=== PATIENT | male | born 1955 | race Caucasian/White ===

== ENCOUNTER → 2017-03-16 | Outpatient (CLI) | payer OTHER ==
[~2017-03-16] MED LIST: AMLO5TAB2 PO; HYDR-3580 PO; IBUP-232 PO; LISI-515 PO; MELO7.5T27 PO; TRAM50TA PO
== END ==
LOC: CPRE 08:01
PROVIDERS: ATTEND Orthopaedic Surgery
DX: Z01.818 Encounter for other preprocedural examination (principal)

== ENCOUNTER 2017-04-02 05:23 | Day surgery (SDC) | payer OTHER ==
[~2017-04-02] VITALS: Ht 177.8 cm; Wt 132.4 kg
[2017-04-02 05:56] VITALS: BP 147/89; PULSE 71; RESP 18; TEMP 98.2; O2SAT 98
[2017-04-02] MEDS ORDERED: POVIDONE IODINE 5% (ANTISEPSIS KIT) 4 APPLICATIONS EACH NARE PRN (06:00)
[2017-04-02] MEDS ORDERED: SODIUM CHLORID 0.9% 500 ML IV PRN (06:00)
[2017-04-02] MEDS ORDERED: LACTATED RINGER'S 1000 ML IV PRN (06:00)
[2017-04-02] MEDS ORDERED: METOPROLOL TARTRATE 25 MG TAB PO PRN (06:00)
[2017-04-02] MEDS ORDERED: EXPAREL PERI-ARTICULAR INJECTION (TOTAL VOL. 60 ML) P-ARTICULR SCH ×2 (06:00)
[2017-04-02] MEDS ORDERED: CHLORHEXIDINE GLUCONATE 4% SOLN 120 ML BTL TOPICAL SCH (06:00)
[2017-04-02] MEDS ORDERED: CHLORHEXIDINE GLUCONATE 2 % 1 PACK (2 CLOTHS) TOPICAL PRN (06:00)
[2017-04-02] MEDS ORDERED: SODIUM CHLORIDE 0.9% IV SCH ×2 (07:00→10:00)
[2017-04-02] MEDS ORDERED: TRANEXAMIC ACID IV SCH ×2 (07:00→10:00)
== END 2017-04-02 06:58 | disposition home or self-care (01) ==
LOC: HSDI 05:23 → HSDC 05:23 → UNDOADMIN 05:23 → HSDI 05:24 → HSDC 06:58 → EDSTATUS 07:00 → EDUNIT# 07:00
PROVIDERS: ATTEND Orthopaedic Surgery
DX: M16.12 Unilateral primary osteoarthritis, left hip (principal); Z53.9 Procedure and treatment not carried out, unspecified reason
CPT/HCPCS: 99211; C9290; G0463

== ENCOUNTER 2017-04-10 05:19 | Inpatient (IN) | payer OTHER ==
[~2017-04-10] VITALS: Ht 180.3 cm; Wt 131.2 kg
[2017-04-10] MEDS ORDERED: CHLORHEXIDINE GLUCONATE 4% SOLN 120 ML BTL TOPICAL SCH (05:45)
[2017-04-10] MEDS ORDERED: EXPAREL PERI-ARTICULAR INJECTION (TOTAL VOL. 60 ML) P-ARTICULR SCH ×2 (05:45)
[2017-04-10] MEDS ORDERED: SODIUM CHLORIDE 0.9% IV SCH (05:45)
[2017-04-10] MEDS ORDERED: CHLORHEXIDINE GLUCONATE 2 % 1 PACK (2 CLOTHS) TOPICAL PRN (05:45)
[2017-04-10] MEDS ORDERED: INSULIN HUMAN REGULAR 1,000 UNITS/10 ML VIAL SQ PRN (05:45)
[2017-04-10] MEDS ORDERED: POVIDONE IODINE 5% (ANTISEPSIS KIT) 4 APPLICATIONS EACH NARE PRN (05:45)
[2017-04-10] MEDS ORDERED: SODIUM CHLORID 0.9% 500 ML IV PRN (05:45)
[2017-04-10] MEDS ORDERED: LACTATED RINGER'S 1000 ML IV PRN (05:45)
[2017-04-10] MEDS ORDERED: ceFAZolin 2 GM PREMIX 50 ML IV SCH (05:45)
[2017-04-10] MEDS ORDERED: TRANEXAMIC ACID IV SCH (05:45)
[2017-04-10] MEDS ORDERED: METOPROLOL TARTRATE 25 MG TAB PO PRN (05:45)
[2017-04-10] MEDS ORDERED: GENTAMICIN SULFATE 80 MG/2 ML VIAL ONE (06:09)
[2017-04-10 06:27] LABS: AUTOMATED NEUTROPHIL # 4.8 TH/MM3 (1.8-7.7); BASOPHIL # 0.1 TH/MM3 (0-0.2); BASOPHIL % 0.8 % (0.0-2.0); EOSINOPHIL # 0.4 TH/MM3 (0-0.4); EOSINOPHIL % 4.7 % (0.0-4.0); HEMATOCRIT 40.1 % (39.0-51.0); HEMO FLAGS DIFF FINAL; LYMPH % 21.8 % (9.0-44.0); LYMPHOCYTE # 1.7 TH/MM3 (1.0-4.8); MEAN CELL VOLUME 78.5 FL (80.0-100.0); MEAN CORPUSCULAR HEMOGLOBIN 26.2 PG (27.0-34.0); MEAN CORPUSCULAR HGB CONC 33.3 % (32.0-36.0); MONO % 10.9 % (0.0-8.0); NEUT % 61.8 % (16.0-70.0); PLATELET COUNT 226 TH/MM3 (150-450); RED BLOOD COUNT 5.11 MIL/MM3 (4.50-5.90); RED CELL DISTRIBUTION WIDTH 14.6 % (11.6-17.2); WHITE BLOOD COUNT 7.7 TH/MM3 (4.0-11.0)
[2017-04-10] MEDS ORDERED: ACETAMINOPHEN 1000 MG/100 ML 100 ML IV ONE (06:31)
[2017-04-10] MEDS ORDERED: FAMOTIDINE 20 MG/2 ML VIAL ONE (06:31)
[2017-04-10] MEDS ORDERED: KETAMINE HCL 500 MG/5 ML VIAL ONE (07:09)
[2017-04-10] MEDS: SODIUM CHLORIDE 0.9% IV SCH ×2 (08:47→08:48)
[2017-04-10] MEDS: TRANEXAMIC ACID IV SCH ×2 (08:47→08:48)
[2017-04-10] MEDS ORDERED: Post-op Orders (for Pharmacy) MISC XX ONE (10:00)
[2017-04-10] MEDS ORDERED: MORPHINE SULFATE 8 MG/ML INJ IV PUSH PRN (10:00)
[2017-04-10] MEDS ORDERED: ACETAMINOPHEN/HYDROcodone 325 MG/7.5 MG TAB PO PRN ×2 (10:00)
[2017-04-10] MEDS ORDERED: ONDANSETRON HCL 4 MG/2 ML VIAL IVP PRN (10:00)
[2017-04-10] MEDS ORDERED: MAGNESIUM HYDROXIDE SUSP 30 ML CUP PO PRN (10:00)
[2017-04-10] MEDS ORDERED: TRANEXAMIC ACID INJ 0 MG in SODIUM CHLORIDE 0.9% INJ 100 ML IV SCH (10:00)
[2017-04-10] MEDS ORDERED: BISACODYL 10 MG SUPP RECTAL PRN (10:00)
[2017-04-10] MEDS ORDERED: SODIUM CHLORIDE 0.9% FLUSH 5 ML FLUSH IVF PRN (10:00)
--- NOTE | 2017-04-10 10:03 | HHI.FF ---
Face to Face Verification Diagnosis: (1) Status post total replacement of left hip Physical Therapy Gait training Hip: Total hip, Protocol: Left, Posterior hip precautions, Abduction pillow while in bed (for 8 weeks postop.), Progress to weight bearing Left LE Weight Bearing: WB as tolerated Left LE Range of Motion: Active ROM Nursing Nursing: Dressing changes (to begin on postop day 7.) Dressing Changes: Daily dressing change (to begin on postop day 7.), Coverderm/ [place] Additional Instructions Remove steristrips on postop day 14. I have seen patient Elier Zapien on 04/10/17. My clinical findings support the need for the requested home health care services because: Ltd mobility - disease progression Limited ability to care for self High risk of falls I certify that my clinical findings support that this patient is homebound because: Post-op weakness Unsteady gait/balance Unsafe to leave home unassisted Megan Cheatham MD (Charles) Apr 10, 2017 10:03
[2017-04-10] MEDS ORDERED: HYDR-3580 PO (10:07)
[2017-04-10] MEDS ORDERED: ECASA81 PO (10:07)
--- NOTE | 2017-04-10 10:11 | HHI.PR ---
Immediate Post Op Note Procedure Date: Apr 10, 2017 Pre Op Diagnosis: (1) Primary osteoarthritis of left hip Post Op Diagnosis: (1) Primary osteoarthritis of left hip Surgeon: Shane Cheatham MD Teaching Fellow(s): MARGY Padilla Procedure: Left total hip arthroplasty with Paul prosthesis. Findings: OA hip Complications: 0 Specimen(s) removed: 0 Estimated blood loss: 200 ml Anesthesia: General, Spinal, Local Drains: None IVF Patient to: PACU Patient Condition: Good Implant/Devices: SEE IMPLANT LOG (if applicable) Date/Time of Procedure: SEE SURGICAL CARE RECORD Megan Cheatham MD (Charles) Apr 10, 2017 10:11
[2017-04-10] MEDS: LACTATED RINGER'S 1000 ML INJ 1,000 ML IV SCH ×2 (10:35→23:30)
[2017-04-10] MEDS ORDERED: *morphine SULFATE 8 MG/ML PERIprocedure ONLY ONE ×2 (10:39→10:48)
[2017-04-10] MEDS ORDERED: KETOROLAC TROMETHAMINE 30 MG/ML (IVP) VIAL ONE (11:02)
--- NOTE | 2017-04-10 11:02 | MP ---
cc: Megan DE JESUS. DATE OF SURGERY 04/10/2017 PREOPERATIVE DIAGNOSIS Primary osteoarthritis left hip POSTOPERATIVE DIAGNOSIS Primary osteoarthritis left hip OPERATION PERFORMED Left total hip arthroplasty with Paul prosthesis. SURGEON Watson De Jesus MD ANESTHESIA Spinal and general with supplemental local. INDICATIONS AND FINDINGS This 61-year-old man has had left hip pain beginning approximately four to five months ago which has progressively worsened over the past months with increasing inability to do activities of daily living. Ambulation tolerance is one mile with pain throughout the entire time and limping throughout the entire time. He has stiffness in the hip and has difficulty with position changes especially standing from a seated position and [id number]. He has been treated with anti-inflammatory agents, analgesics, activity modification, exercise, ambulatory aids with no improvement. Physical findings showed limited range of motion in the hip with tenderness on range of motion. X-rays showed loss of articular cartilage to [id number] with cysts and osteophytes. Operative findings were consistent with her radiographic findings with there being cysts, loss of articular cartilage to [id number]-[id number] and osteophytes. PROSTHESIS USED Paul prosthesis. The acetabular component was a titanium cluster shell cup size 56 mm outer diameter. There was a 25 mm and a 20 mm screw used. The liner was a 36 mm inner diameter 0 degree liner of X3 polyethylene. The femoral component was a size 6 x 132 degrees stem which was Accolade II. The femoral head was a 36 mm outer diameter -5 mm neck length Biolox Delta component. PROCEDURE The patient was brought to the operating room and a spinal anesthetic was administered. Because of his significant mobility, the anesthesiologist felt that it would be appropriate for him to have a general anesthetic in addition. He was placed in a lateral position with the left hip up and was prepped with alcohol, Hibiclens and Chloraprep and draped in the usual manner with the hip draped free. An appropriate time-out procedure was carried out. This procedure was carried out in the clean-air operating suite. The patient received tranexamic acid according to protocol and also received Ancef according to the protocol. After the time out, a posterior lateral incision was made going from a mid trochanteric area posteriorly and superiorly towards the sciatic notch. This was deepened through the subcutaneous tissues down to the gluteus and fascia martell. This was then incised along the raphe following the fibers in the skin incision. This blunt dissection was then carried down to the fossa behind the femoral greater trochanter. Retractors were placed with wound towels. A Charnley retractor was placed. The hemostasis was achieved throughout the procedure with electrocautery. A retractor was placed under the gluteus minimus and a capsulotomy was carried out with electrocautery longitudinally to the femoral neck and was carried distally after releasing the obturator, piriformis conjoined tendons. Further dissection was carried out farther distally into some of the additional external rotators because exposure was somewhat limited. The hip was then dislocated. The femoral neck was transected 10 mm up from the lesser trochanter. Femoral preparation was then initiated with a box osteotome and a curette to find the medullary canal. Broaching was started with a size zero and went up to size 6 in one size increments. With a #6 stem seated appropriately, calcar planing was carried out. The hip was repositioned. Retractors were placed about the acetabulum. The soft tissues were cleaned from the acetabulum. Reaming was then initiated as a size 48 mm and went in 2 mm increments to 53 mm and then went in 1 mm increments 55 mm. At 55 mm, a trial prosthesis was impacted into the acetabulum and seated appropriately. This was determined to be the appropriate size and amount of reaming. This was then removed. Curettage of the cyst was carried out with bone packing from the femoral neck. The acetabular component was then impacted into place and seated appropriately. Drill holes were made, sounded and appropriate sized screws inserted. The 0 degree liner was impacted into place after cleaning with pulse lavage. Trial reduction was then carried out with the -5 mm neck length. The motion was excellent. There was no pistoning. The leg length was appropriate. The stability was excellent. The trial prosthesis was removed along with a broach. The actual prosthesis was then inserted into the cleaned medullary canal. Local anesthesia was administered throughout the hip with Exparel. The trunnion was then cleaned and dried. The Biolox Delta head was impacted onto the trunnion. The hip was reduced. The hip was taken through a range of motion which was found to be excellent. The stability was excellent. There was no pistoning. The leg lengths appeared appropriate. Wound closure then commenced using #1 Vicryl interrupted whiyct-hi-zenzi sutures for closure of the upper portion of the capsule. The capsule and external rotators were reattached with #1 Vicryl Krackow sutures using a transosseous technique. The fascia martell and gluteus fascia were repaired with #1 Vicryl interrupted dmuoag-jb-ywfeh sutures. The subcutaneous tissues were closed with 2-0 Vicryl interrupted simple sutures with buried knots. The skin was closed with continuous subcuticular closure of 4-0 Monocryl. The wound was dressed with Steri-Strips followed by dry dressing using a silver impregnated dressing. The leg was placed into a knee immobilizer. The patient was transferred to the recovery room in satisfactory condition having tolerated the procedure well. Counts are correct. Specimens, none. ESTIMATED BLOOD LOSS 200 mL MD LUL Goddard/FLORENCIO /10:12 AM /10:39 AM
[2017-04-10] MEDS: KETOROLAC TROMETHAMINE 30 MG/ML (IVP) VIAL IVP SCH ×3 (11:05→21:23)
[2017-04-10 11:10] VITALS: BP 101/58; PULSE 74; RESP 18; TEMP 96.4; O2SAT 94
[2017-04-10] MEDS ORDERED: DEXAMETHASONE SOD PHOS 4 MG/ML VIAL IV ONE (12:00)
[2017-04-10] MEDS ORDERED: LACTATED RINGER'S 1000 ML INJ 1,000 ML IV ONE (12:00)
[2017-04-10] MEDS ORDERED: PROPOFOL 200 MG/20 ML AMP IV ONE (12:00)
[2017-04-10] MEDS ORDERED: PHENYLEPHRINE HCL 10 MG/ML VIAL IV ONE (12:00)
[2017-04-10] MEDS ORDERED: MIDAZOLAM HCL 2 MG/2 ML VIAL IV ONE (12:00)
[2017-04-10] MEDS ORDERED: LIDOCAINE HCL 1% PF 5 ML SYRINGE OTHER ONE (12:00)
[2017-04-10] MEDS ORDERED: PHENYLEPH/NS 1000 MCG/10 ML SYR IV ONE (12:00)
[2017-04-10] MEDS ORDERED: ONDANSETRON HCL 4 MG/2 ML VIAL IV PUSH ONE (12:00)
[2017-04-10] MEDS ORDERED: ePHEDrine/NS 25 MG/5 ML SYR IV ONE (12:00)
[2017-04-10] MEDS ORDERED: GLYCOPYRROLATE 1 MG/5 ML SYRINGE IV PUSH ONE (12:00)
[2017-04-10 12:23] VITALS: O2SAT 97
--- NOTE | 2017-04-10 12:53 | RADRPT ---
EXAM DATE/TIME: 04/10/2017 08:58 [facility] COMPARISON: No previous studies available for comparison. INDICATIONS : Post op left hip surgery MEDICAL HISTORY : None. SURGICAL HISTORY : None. ENCOUNTER: Initial ACUITY: 1 day PAIN SCORE: 5/10 LOCATION: Left hip FINDINGS: A two view examination of the left hip was performed. Postsurgical changes following hip replacement are noted. Acetabular and femoral components are well-seated in satisfactory aligned. Bony structures are otherwise intact. Significant arthropathy is noted of the left sacroiliac joint. CONCLUSION: 1. Satisfactory postoperative appearance of the left hip status post replacement. 2. Left sacroiliac arthropathy. Alfonso Peralta MD on April 10, 2017 at 12:50 Board Certified Radiologist. This report was verified electronically.
[2017-04-10] MEDS: ceFAZolin 2 GM PREMIX 50 ML IV SCH ×2 (13:07→18:16)
--- NOTE | 2017-04-10 13:22 | PD.CONS ---
HPI Service [facility] Consult Requested By Dr ALBINA Cheatham Reason for Consult medical management Primary Care Physician Elier Valenzuela M.D. Diagnoses: History of Present Illness This is a 61 year old male who was chronic left hip pain secondary to osteoarthritis. Underwent arthroplasty by Dr. Cheatham who requested consultation to evaluate and manage multiple medical conditions. Anesthesia records reviewed he was hemodynamically stable received 2000 mL crystalloid and EBL of 150 mL. Urine output was not measured. He received spinal anesthesia. At this time he has no complaints no hip pain, numbness and nausea. Confirms history of hypertension controlled on Norvasc and lisinopril. All other systems reviewed negative Review of Systems Except as stated in HPI: all other systems reviewed are Neg Past Family Social History Allergies: Coded Allergies: Penicillins (Verified Allergy, Severe, RASH, 04/10/17) Past Medical History As previously mentioned Past Surgical History Recent dental surgery, right knee cyst removal and left arm fracture status post repair Reported Medications Hydrocodone-Acetaminophen 7.5-325 mg Tab 1 Tab PO Q4H PRN Reported Meloxicam 7.5 Mg Tab 7.5 Mg PO DAILY Tramadol (Tramadol HCl) 50 Mg Tab 50 Mg PO BID Lisinopril 20 Mg Tab 20 Mg PO DAILY Amlodipine (Amlodipine Besylate) 5 Mg Tab 5 Mg PO HS Ibuprofen 600 Mg Tab 600 Mg PO TID Family History No CAD Social History Does not smoke or drink Physical Exam Vital Signs Vital Signs Date Time Temp Pulse Resp B/P (MAP) Pulse Ox O2 Delivery O2 Flow Rate FiO2 04/10/17 12:23 97 04/10/17 11:10 97.7 79 15 114/60 (78) 95 Room Air 04/10/17 11:10 96.4 74 18 101/58 (72) 94 04/10/17 11:00 75 15 119/58 (78) 94 Room Air 04/10/17 10:45 77 24 123/67 (85) 94 Room Air 04/10/17 10:30 78 20 116/68 (84) 95 Room Air 04/10/17 10:16 97.7 86 20 121/74 (90) 100 Room Air 04/10/17 05:58 98.0 73 20 150/85 (106) 99 Physical Exam GENERAL: This is a well-nourished, well-developed patient, in no apparent distress. SKIN: No rashes, ecchymoses or lesions. Cool and dry. HEAD: Atraumatic. Normocephalic. No temporal or scalp tenderness. EYES: Pupils equal round and reactive. Extraocular motions intact. No scleral icterus. No injection or drainage. ENT: Nose without bleeding, purulent drainage or septal hematoma. Throat without erythema, tonsillar hypertrophy or exudate. Uvula midline. Airway patent. NECK: Trachea midline. No JVD or lymphadenopathy. Supple, nontender, no meningeal signs. CARDIOVASCULAR: Regular rate and rhythm without murmurs, gallops, or rubs. RESPIRATORY: Clear to auscultation. Breath sounds equal bilaterally. No wheezes , rales, or rhonchi. GASTROINTESTINAL: Abdomen soft, non-tender, nondistended. No guarding. MUSCULOSKELETAL: Extremities without clubbing, cyanosis, or edema. Dry dressing left hip NEUROLOGICAL: Awake and alert. Cranial nerves II through XII intact. Motor and sensory grossly within normal limits. Five out of 5 muscle strength in all muscle groups. Normal speech. Laboratory Laboratory Tests Test 04/10/17 06:00 White Blood Count 7.7 Red Blood Count 5.11 Hemoglobin 13.4 Hematocrit 40.1 Mean Corpuscular Volume 78.5 Mean Corpuscular Hemoglobin 26.2 Mean Corpuscular Hemoglobin Concent 33.3 Red Cell Distribution Width 14.6 Platelet Count 226 Mean Platelet Volume 8.3 Neutrophils (%) (Auto) 61.8 Lymphocytes (%) (Auto) 21.8 Monocytes (%) (Auto) 10.9 Eosinophils (%) (Auto) 4.7 Basophils (%) (Auto) 0.8 Neutrophils # (Auto) 4.8 Lymphocytes # (Auto) 1.7 Monocytes # (Auto) 0.8 Eosinophils # (Auto) 0.4 Basophils # (Auto) 0.1 CBC Comment DIFF FINAL Differential Comment Result Diagram: 04/10/17 0600 Imaging Last Impressions Hip X-Ray 04/10/17 0956 Signed Impressions: Service Date/Time: Monday, April 10, 2017 08:58 - CONCLUSION: 1. Satisfactory postoperative appearance of the left hip status post replacement. 2. Left sacroiliac arthropathy. Alfonso Peralta MD Assessment and Plan Problem List: (1) Primary osteoarthritis of left hip ICD Code: M16.12 - Unilateral primary osteoarthritis, left hip (2) Status post total replacement of left hip ICD Code: Z96.642 - Presence of left artificial hip joint Assessment and Plan This is a 61 year old male who was chronic left hip pain secondary to osteoarthritis. Underwent arthroplasty by Dr. Cheatham who requested consultation to evaluate and manage multiple medical conditions. Anesthesia records reviewed he was hemodynamically stable received 2000 mL crystalloid and EBL of 150 mL. Urine output was not measured. He received spinal anesthesia. At this time he has no complaints no hip pain, numbness and nausea. Left hip arthroplasty. Stable continue postoperative care with wound care. Physical therapy, DVT prophylaxis with aspirin and pain management with Lortab, ketorolac and morphine sulfate. Check hemoglobin and hematocrit monitor for postoperative anemia secondary to acute blood loss Hypertension controlled on Norvasc and lisinopril. We'll continue to monitor Discussed Condition With Patient Robert Dewitt MD Apr 10, 2017 13:22
--- NOTE | 2017-04-10 15:13 | EKG ---
Date Performed: 04/10/2017 Time Performed: 06:25:49 PTAGE: 61 years EKG: Sinus rhythm POSSIBLE RIGHT VENTRICULAR CONDUCTION DELAY BORDERLINE ECG NO PREVIOUS TRACING DOCTOR: Rosa Tovar Interpretating Date/Time 04/10/2017 15:12:05
[2017-04-10 16:00] VITALS: BP 116/62; PULSE 66; RESP 18; TEMP 96.5; O2SAT 97
[2017-04-10 19:15] VITALS: BP 118/70; PULSE 63; RESP 18; TEMP 96.7; O2SAT 97
[2017-04-10] MEDS: SODIUM CHLORIDE 0.9% FLUSH 5 ML FLUSH IVF SCH (21:00)
[2017-04-10] MEDS ORDERED: ZOLPIDEM TARTRATE 5 MG TAB PO PRN (21:00)
[2017-04-10] MEDS ORDERED: amLODIPine BESYLATE 5 MG TAB PO SCH (21:00)
[2017-04-10 23:10] VITALS: BP 130/81; PULSE 68; RESP 18; TEMP 98; O2SAT 98
[2017-04-11] MEDS: ceFAZolin 2 GM PREMIX 50 ML IV SCH (00:30)
[2017-04-11 01:30] VITALS: BP 138/93; PULSE 71; RESP 18; TEMP 97.1; O2SAT 98
[2017-04-11] MEDS: KETOROLAC TROMETHAMINE 30 MG/ML (IVP) VIAL IVP SCH ×2 (04:21→09:31)
[2017-04-11 05:00] VITALS: BP 138/93; PULSE 71; RESP 18; TEMP 98; O2SAT 98
[2017-04-11 07:40] LABS: HEMATOCRIT 36.3 % (39.0-51.0); REVIEW FLAG FINAL
--- NOTE | 2017-04-11 07:46 | PD.ORT.PN ---
Subjective Post Op Day #: 1 Subjective Remarks He is doing well, with no real complaints. He had some nausea possibly from [place]. Distance Walked 155 feet. Objective Vitals Vital Signs Date Time Temp Pulse Resp B/P (MAP) Pulse Ox O2 Delivery O2 Flow Rate FiO2 04/11/17 05:00 98.0 71 18 138/93 (108) 98 04/11/17 01:30 97.1 71 18 138/93 (108) 98 04/10/17 23:10 98.0 68 18 130/81 (97) 98 04/10/17 19:15 96.7 63 18 118/70 (86) 97 04/10/17 18:47 Room Air 04/10/17 16:00 96.5 66 18 116/62 (80) 97 04/10/17 12:23 97 04/10/17 11:10 97.7 79 15 114/60 (78) 95 Room Air 04/10/17 11:10 96.4 74 18 101/58 (72) 94 04/10/17 11:00 75 15 119/58 (78) 94 Room Air 04/10/17 10:45 77 24 123/67 (85) 94 Room Air 04/10/17 10:30 78 20 116/68 (84) 95 Room Air 04/10/17 10:16 97.7 86 20 121/74 (90) 100 Room Air I/O 04/10/17 04/10/17 04/10/17 04/11/17 04/11/17 04/11/17 07:00 15:00 23:00 07:00 15:00 23:00 Intake Total 2718.1 ml 720 ml 816 ml Output Total 950 ml Balance 1768.1 ml 720 ml 816 ml Intake Oral 600 ml 720 ml 480 ml IV Total 118.1 ml 336 ml Other 2000 ml Output Urine Total 800 ml Estimated Blood Loss 150 ml # Voids 0 4 1 # Bowel Movements 0 0 0 Result Diagram: 04/11/17 0631 Imaging Last 24 hours Impressions Hip X-Ray 04/10/17 0956 Signed Impressions: Service Date/Time: Monday, April 10, 2017 08:58 - CONCLUSION: 1. Satisfactory postoperative appearance of the left hip status post replacement. 2. Left sacroiliac arthropathy. Alfonso Peralta MD Objective Remarks He is OOB in the chair. The neurovascular status is intact. The dressing is dry and intact. Assessment & Plan Ortho Post Op Day #: 1 Problem List: Assessment and Plan Condition: Good. Orthopaedically stable. DVT prophylaxis: TEDs, sequentials, ASA. Discharge plans: Home with [facility]. Has appointment. Rx: Norco7.5/325, switched to Tramadol Megan Cheatham MD (Charles) Apr 11, 2017 07:46
[2017-04-11 08:00] VITALS: BP 156/85; PULSE 74; RESP 20; TEMP 96.2; O2SAT 99
[2017-04-11] MEDS ORDERED: TRAM50TA PO (08:04)
[2017-04-11] MEDS ORDERED: LISINOPRIL 20 MG TAB PO SCH (09:00)
[2017-04-11] MEDS: SODIUM CHLORIDE 0.9% FLUSH 5 ML FLUSH IVF SCH (09:00)
[2017-04-11] MEDS ORDERED: ASPIRIN EC 81 MG TABEC PO SCH (09:30)
[2017-04-11] MEDS: traMADol HCL 50 MG TAB PO PRN ×2 (10:30→15:23)
[2017-04-11 12:00] VITALS: BP 133/74; PULSE 69; RESP 19; TEMP 96.2; O2SAT 99
[2017-04-11] MEDS: LACTATED RINGER'S 1000 ML INJ 1,000 ML IV SCH (12:00)
--- NOTE | 2017-04-11 12:45 | HHI.PR ---
Subjective Remarks Patient in nad. Pain is controlled by meds. Denies chest pain or sob. No n/v/d/ c. Objective Vitals Vital Signs Date Time Temp Pulse Resp B/P (MAP) Pulse Ox O2 Delivery O2 Flow Rate FiO2 04/11/17 09:38 Room Air 04/11/17 08:00 96.2 74 20 156/85 (108) 99 04/11/17 05:00 98.0 71 18 138/93 (108) 98 04/11/17 01:30 97.1 71 18 138/93 (108) 98 04/10/17 23:10 98.0 68 18 130/81 (97) 98 04/10/17 19:15 96.7 63 18 118/70 (86) 97 04/10/17 18:47 Room Air 04/10/17 16:00 96.5 66 18 116/62 (80) 97 I/O 04/10/17 04/10/17 04/10/17 04/11/17 04/11/17 04/11/17 07:00 15:00 23:00 07:00 15:00 23:00 Intake Total 2718.1 ml 720 ml 816 ml Output Total 950 ml Balance 1768.1 ml 720 ml 816 ml Intake Oral 600 ml 720 ml 480 ml IV Total 118.1 ml 336 ml Other 2000 ml Output Urine Total 800 ml Estimated Blood Loss 150 ml # Voids 0 4 1 # Bowel Movements 0 0 0 Result Diagram: 04/11/17 0631 Imaging Last Impressions Hip X-Ray 04/10/17 0956 Signed Impressions: Service Date/Time: Monday, April 10, 2017 08:58 - CONCLUSION: 1. Satisfactory postoperative appearance of the left hip status post replacement. 2. Left sacroiliac arthropathy. Alfonso Peralta MD Objective Remarks GENERAL: This is a well-nourished, well-developed patient, in no apparent distress. CARDIOVASCULAR: Regular rate and rhythm without murmurs, gallops, or rubs. RESPIRATORY: Clear to auscultation. Breath sounds equal bilaterally. No wheezes , rales, or rhonchi. GASTROINTESTINAL: Abdomen soft, non-tender, nondistended. No guarding. MUSCULOSKELETAL: Extremities without clubbing, cyanosis, or edema. Dry dressing left hip NEUROLOGICAL: Awake and alert. Cranial nerves II through XII intact. Motor and sensory grossly within normal limits. Five out of 5 muscle strength in all muscle groups. Normal speech. A/P Problem List: (1) Primary osteoarthritis of left hip ICD Code: M16.12 - Unilateral primary osteoarthritis, left hip (2) Status post total replacement of left hip ICD Code: Z96.642 - Presence of left artificial hip joint Assessment and Plan This is a 61 year old male who was chronic left hip pain secondary to osteoarthritis. Underwent arthroplasty by Dr. Cheatham who requested consultation to evaluate and manage multiple medical conditions. Anesthesia records reviewed he was hemodynamically stable received 2000 mL crystalloid and EBL of 150 mL. Urine output was not measured. He received spinal anesthesia. At this time he has no complaints no hip pain, numbness and nausea. Left hip arthroplasty. Stable continue postoperative care with wound care. Physical therapy, DVT prophylaxis with aspirin and pain management with Lortab, ketorolac and morphine sulfate. Check hemoglobin and hematocrit monitor for postoperative anemia secondary to acute blood loss. H/H stable post-op Hypertension controlled on Norvasc and lisinopril. Discussed Condition With Patient, nurse Medically stable can be DC when arrangements done Janet Ramos MD Apr 11, 2017 12:45
[2017-04-11 15:41] VITALS: O2SAT 99
[2017-04-11] MEDS ORDERED: DOCUSATE SODIUM 100 MG CAP PO SCH (21:00)
== END 2017-04-11 15:43 | disposition home health service (06) | DRG 470 ==
LOC: HSDI 05:19 → N06B 11:19
PROVIDERS: ADMIT Orthopaedic Surgery; ATTEND Orthopaedic Surgery
PROC: 0SRB02A Replacement of Left Hip Joint with Metal on Polyethylene Synthetic Substitute, Uncemented, Open Approach (ICD-10-PCS; principal; 2017-04-10 06:48)
DX: M16.12 Unilateral primary osteoarthritis, left hip (principal); I10 Essential (primary) hypertension; G89.29 Other chronic pain; R11.0 Nausea
CPT/HCPCS: 73502; 85014; 85018; 85025; 86850; 86900; 86901; 93005; 94150; C1776; C9290; J0131; J0690; J1100; J1580; J1885; J2250; J2270; J2370; J2405; J3010; J7120; L1830